=== PATIENT | female | born 1975 | race Caucasian/White ===

== ENCOUNTER 2018-02-05 13:54 | Inpatient (IN) | payer OTHER ==
[~2018-02-05] VITALS: Ht 165.1 cm; Wt 50.1 kg
[~2018-02-05 13:54] MED LIST: ALBUTEROL0.09 MG/A1 INH; AUGMENTIN 875 M1 TAB PO; CETIRIZINE HCL10 MG PO; CRAN-PLUS1 CAP PO; ESCITALOPRAM10 MG; FLONASE120 SPRAY/ NASB; MOTRIN800 MG PO; NICODERM C14 MG/24 H TOP; PERCOCET 325 MG1 TA2 PO; Robitussin Dm PO; SYMBICORT 160/41 PUF INH; TUMS500 MG PO; ZYRTEC ALLERGY10 MG
[2018-02-05 14:32] LABS: ABSOLUTE BASOPHIL COUNT 0.1 /CUMM (0.0-0.2); ABSOLUTE EOSINOPHIL COUNT 0 /CUMM (0.0-0.7); ABSOLUTE GRANULOCYTE CT 6.2 /CUMM (1.4-6.5); ABSOLUTE LYMPH COUNT 1.6 /CUMM (1.2-3.4); ABSOLUTE MONOCYTE COUNT 0.8 /CUMM (0.10-0.60); BASOPHIL % 0.7 % (0.0-2.0); EOSINOPHIL % 0.3 % (0-5); GRANULOCYTE % 70.9 % (42.2-75.2); HEMATOCRIT 32.6 % (37-47); MEAN CORPUSCULAR HGB CONC 32.8 G/DL (33.0-37.0); MEAN CORPUSCULAR VOLUME 112.7 FL (81.0-99.0); MEAN PLATELET VOLUME 8.2 FL (7.4-10.4); PLATELET COUNT 315 /CUMM (130-400); RBC DISTRIBUTION WIDTH 15.6 % (11.5-14.5); RED BLOOD CELL CT 2.89 /CUMM (4.20-5.40); WHITE BLOOD CELL COUNT 8.8 /CUMM (4.8-10.8)
--- NOTE | 2018-02-05 16:23 | ED GI/GU/ABDOMINAL COMPLAINT ---
History of Present Illness General Chief Complaint: Abdominal Pain/Flank Pain Stated Complaint: ABD PAIN Source: patient Exam Limitations: no limitations Triage Note: 42 YO FEMALE TO TRIAGE FOR EVAL OF ABD DISTENTION AND ABD PAIN ZACKERY PEREZ. STATES SHE HAS LOST ALOT OF WEIGHT OVER THE PAST MONTH, STATES WAS BINGE DRINKING FOR "AWHILE" BUT HAS STOPPED. STATES ABD PAIN HAS BEEN GOING ON FOR "AWHILE" "I THOUGHT IT WAS FROM MY ANTIDEPRESSENTS" Triage Nurses Notes Reviewed? yes ? N Is pt currently ? No HPI: Patient is a 42-year-old male presenting to the emergency department accompanied by mother complaining of severe abdominal pain and distention that has worsened past 3 weeks specifically the past 2 days. She states her belly has slowly been getting distended, she is having increased pain. Associated symptoms include chills, a 30 pound weight loss in the past 3 months, and nausea. Patient admits she went through a bad divorce a few months ago which got her depressed, drinking often, and loss of appetite. She denies any chest pain, vomiting, fever, hematochezia, or melena. She is followed by her PCP Dr. Cherry who recently placed her on Macrobid last week for suspected UTI. She states she only took the antibiotic for the first 2 days and has stopped. There is no dysuria but states she is not voiding completely possibly due to belly extension. (Peggy DENNY,Antwon) Reconcile Medications Albuterol Sulfate (Proventil Hfa) 90 MCG HFA.AER.AD 2 PUF INH 4 TIMES/DAY PRN SOB (Reported) Budesonide/Formoterol Fumarate (Symbicort 160-4.5 Mcg Inhaler) 160 MCG-4.5 MCG/ ACTUATION HFA.AER.AD 2 PUF INH BID ASHTMA (Reported) Multivitamin (One Daily) 1 EACH TABLET 1 TAB PO DAILY SUPPLEMENT (Reported) (Eric Talamantes DO) Vital Signs & Intake/Output Vital Signs & Intake/Output Vital Signs Date Time Temp Pulse Resp B/P B/P Pulse O2 O2 Flow FiO2 Mean Ox Delivery Rate 02/07 0600 98.1 79 16 102/56 98 Room Air 02/07 0156 98.6 95 16 116/70 98 Room Air 02/07 0000 Room Air 02/06 2010 98.3 93 16 120/70 100 02/06 1400 98.3 78 20 100/60 02/06 1354 98.3 78 20 97 Room Air ED Intake and Output 02/07 0000 02/06 1200 Intake Total 1680 300 Output Total 400 Balance 1280 300 Intake, IV 300 300 Intake, Oral 1380 Number 5 Bowel Movements Output, Urine 400 Patient 111 lb Weight Allergies Coded Allergies: acetaminophen (From VICODIN) (UPSET STOMACH 02/05/18) hydrocodone (From VICODIN) (UPSET STOMACH 02/05/18) oxycodone (From PERCOCET) (UPSET STOMACH 02/05/18) (Maria Del Rosario Pelayo) Past History Travel History Traveled to [place] past 21 day No Medical History Any Pertinent Medical History? see below for history Neurological: NONE EENT: NONE Cardiovascular: MITRAL VALVE PROLAPSE Respiratory: bronchitis, rUPTURED BLEBS WITH PNEUMOTHORAX IS BILATERAL Gastrointestinal: NONE Hepatic: NONE Renal: NONE Musculoskeletal: FRACTURED RTOE WITH PINS Psychiatric: NONE Endocrine: NONE Blood Disorders: NONE Cancer(s): NONE SERVICE CREW LEADER/Reproductive: S/P TUBAL LIGATION History of MRSA: No History of VRE: No History of CDIFF: No Tetanus Vaccine: 06/13/13 Surgical History Surgical History: surgery for collapsed lung Psychosocial History Who do you live with Family Services at Home None What is your primary language French Tobacco Use: Current Daily Use Daily Tobacco Use Amount/Type: => 5 Cigarettes daily Family History Family History, If Any: MOTHER FATHER Relation not specified for: FH: brain cancer FH: COPD (chronic obstructive pulmonary disease) Hx Contributory? No (Antwon Jean) Review of Systems Review of Systems Constitutional: Reports: chills, weakness. Denies: diaphoresis, fever, malaise. EENTM: Denies: blurred vision, double vision, visual changes. Respiratory: Denies: cough, hemoptysis, short of breath. Cardiovascular: Denies: chest pain, palpitations. GI: Reports: abdominal pain, diarrhea, distention. Denies: melena, bloody stool. Genitourinary: Reports: hesitation. Denies: dysuria, hematuria. (Antwon Jean) Physical Exam Physical Exam General Appearance: well developed/nourished, alert, awake, anxious, severe distress Head: atraumatic, normal appearance Eyes: Bilateral: normal appearance, EOMI. Ears, Nose, Throat, Mouth: hearing grossly normal Neck: normal inspection, supple, full range of motion Respiratory: normal breath sounds, no respiratory distress, quiet respiration Cardiovascular: regular rate/rhythm Gastrointestinal: distention, guarding, tenderness, hyperactive bowel sounds Back: CVA tenderness (R), CVA tenderness (L) Comments: Diffuse tenderness throughout all of abdomen however slightly more tender in the right upper quadrant. Positive Lion sign. Positive rebound tenderness throughout. Core Measures ACS in differential dx? No Sepsis Present: No Sepsis Focused Exam Completed? No (Antwon Jean) Progress Differential Diagnosis: AAA (peritonitis ), appendicitis, biliary colic, bowel obstruction, cholecystitis, diverticulitis, ectopic , endometritis, kidney stone, ovarian cyst, ovarian torsion, pancreatitis, PID/cervicitis, UTI/ pyelo, peritonitis, etoh hepatitis (Antwon Jean) Plan of Care: Orders Procedure Date/time Status CULTURE,BODY FLUID 02/07 0907 Active CYTOLOGY SPECIMEN 02/07 0907 Active BODY FLUID TOTAL PROTEIN 02/07 0907 Active BODY FLUID LDH 02/07 0907 Active BODY FLUID CELL COUNT 02/07 0907 Active BODY FLUID GLUCOSE 02/07 0907 Active BODY FLUID AMYLASE 02/07 0907 Active BODY FLUID ALBUMIN 02/07 0907 Active HEPATIC FUNCTION PANEL 02/07 0600 Active US-PARACENTESIS 02/07 UNK Active Regular Diet 02/06 L Active URINE 02/06 1017 Complete Current Medications Sig/Dawson Start time Last Medication Dose Stop Time Status Admin Furosemide 20 MG DAILY 02/07 0912 AC (Lasix) Spironolactone 50 MG DAILY 02/07 0912 AC (Aldactone) Folic Acid 1 MG DAILY 02/06 0900 AC 02/07 (Folic Acid) 0907 Multivitamins 1 TAB DAILY 02/06 0900 AC 02/07 (Theragran Vitamins) 0908 Thiamine HCl 100 MG DAILY 02/06 0900 AC 02/07 (Vitamin B1) 0908 Omeprazole 40 MG DAILY AC 02/06 0700 AC (Prilosec) Lorazepam 0 Q1P PRN 02/06 0045 AC (Ativan) Heparin Sodium 5,000 UNIT Q8 02/05 2200 AC (Porcine) Ondansetron HCl 4 MG Q6P PRN 02/05 2115 AC 02/06 (Zofran) 0421 Ketorolac 15 MG Q6P PRN 02/05 2100 AC 02/07 Tromethamine 02/10 (Toradol) Laboratory Tests 02/07/18 0605: Total Bilirubin Pending, Direct Bilirubin Pending, AST Pending, ALT Pending, Alkaline Phosphatase Pending, Total Protein Pending, Albumin Pending 02/06/18 1300: Urine Test NEGATIVE 02/06/18 1141: Lactic Acid Cancelled 02/06/18 1000: Lactic Acid 1.6 02/06/18 0946: Urine Color ADDY, Urine Clarity HAZY H, Urine pH 6.0, Ur Specific [place] >= 1.030, Urine Protein 30 H, Urine Ketones TRACE H, Urine Nitrite POS H, Urine Bilirubin POS@ICTO H, Urine Urobilinogen 4.0 H, Ur Leukocyte Esterase TRACE H , Ur Microscopic SEDIMENT EXAMINED, Urine RBC PACKD H, Urine WBC 1-3 H, Ur Epithelial Cells MOD H, Urine Bacteria MOD H, Urine Mucus MANY H, Urine Hemoglobin LARGE H, Urine Glucose NEG Microbiology 02/07 907 BODY FLUID: Body Fluid Culture - ORD 02/07 907 BODY FLUID: Gram Stain - ORD Patient is a 42-year-old female presenting to the emergency department accompanied by mother complaining of severe abdominal pain and distention that has worsened past 3 weeks, specifically the past 2 days. There is a recent history of suspected UTI. Patient has bilateral flank pain as well as diffuse abdominal tenderness and distention. CT Scan with contrast results: IMPRESSION: 1. Moderate volume of ascites. 2. Small right and trace left pleural effusions. 3. Prominent bullous changes at the lung bases. 4. Hepatomegaly and changes of diffuse hepatic steatosis. A paracentesis was performed with sterile technique and aseptic conditions. Fluid was sent off for culture. Noted as clear and yellow. Admission orders were put in for the patient at this time around 21:00. (Antwon Jean) I was involved in patient care for diagnostic and therapeutic paracentesis only. Details described in the procedure note. Maria Del Rosario Newman PA-C Initial ED EKG: none (Maria Del Rosario Pelayo) Departure Departure Condition: Stable Referrals: Martha QUINTEROS,Hector Patel (PCP/Family) Departure Forms: Customer Survey General Discharge Information (Antwon Jean) Departure Clinical Impression Primary Impression: Alcoholic hepatitis Secondary Impressions: Liver failure Admission Note Spoke With: Jorge Davis MD Documentation of Exam: Documentation of any treatments & extenuating circumstances including Concerns Regarding Discharge (functional status, medication knowledge or non-compliance, living conditions, etc.) that warrant an admission rather than observation: [The patient needs admission for paracentesis, GI consultation, IV fluids, IV analgesics, rule out spontaneous bacterial peritonitis] Saw and personally examined the patient and I agree with the PAs evaluation. Paracentesis done under my direct supervision. PA/COPING MACHINE OPERATOR Co-Sign Statement Statement: ED Attending supervision documentation- [x] I saw and evaluated the patient. I have also reviewed all the pertinent lab results and diagnostic results. I agree with the findings and the plan of care as documented in the PA's/COPING MACHINE OPERATOR's documentation. [] I have reviewed the ED Record and agree with the PA's/COPING MACHINE OPERATOR's documentation. [] Additions or exceptions (if any) to the PAs/COPING MACHINE OPERATOR's note and plan are summarized below: [] Resident Co-Sign Statement Statement: ED Attending supervision documentation- [z] I saw and evaluated the patient. I have also reviewed all the pertinent lab results and diagnostic results. I agree with the findings and the plan of care as documented in the Resident's documentation. [] I have reviewed the ED Record and agree with the Resident's documentation. [] Additions or exceptions (if any) to the Resident's note and plan are summarized below: [] I saw and personally examined the patient and I agree with the direct marketing intern's evaluation. She has left lower quadrant abdominal pain and tenderness. (Eric Talamantes DO) Departure Disposition: STILL A PATIENT (Maria Del Rosario Pelayo) Procedures Additional Procedures Additional Procedures: paracentesis Progress: Largest pocket fluid visualized in the right lower quadrant using ultrasound, anesthetized with 1% lidocaine, 20 cc syringe filled with clear yellow ascites fluid for diagnostic purposes, additional 250 cc of ascites fluid were removed for therapeutic relief. Pigtail catheter was removed and bandage applied. No complications during the procedure per (Maria Del Rosario Pelayo) ED Attending Observation Initial Observation Note: I have seen and personally examined NANCY MALIK on 02/05/18 at 2140. I agree with the current emergency department documentation. The disposition (admission or discharge) is uncertain at this time, she needs a period of observation for the following reason(s): The ED Nurse caring for this patient has been personally informed as to what the patient is being observed for. (Antwon Jean) anesthetized with 1% lidocaine, 20 cc syringe filled with clear yellow ascites fluid for diagnostic purposes, additional 250 cc of ascites fluid were removed for therapeutic relief. Pigtail catheter was removed and bandage applied. No complications during the procedure per (Maria Del Rosario Pelayo) ED Attending Observation Initial Observation Note: I have seen and personally examined NANCY MALIK on 02/05/18 at 2140. I agree with the current emergency department documentation. The disposition (admission or discharge) is uncertain at this time, she needs a period of observation for the following reason(s): The ED Nurse caring for this patient has been personally informed as to what the patient is being observed for. (Antwon Jean)
--- NOTE | 2018-02-05 17:37 | CT SCAN REPORT ---
EXAMINATION: CT ABDOMEN AND PELVIS WITH CONTRAST CLINICAL INFORMATION: Abdominal pain and distention. COMPARISON: CT abdomen and pelvis 01/13/2009. TECHNIQUE: Multidetector volumetric imaging was performed from the superior aspect of the liver through the pubic symphysis following administration of oral contrast. Sagittal and coronal reformatted images were obtained on the technologist's workstation. DLP: 283 mGy-cm FINDINGS: LUNG BASES: Prominent bullous changes at the bilateral lung bases. Small right pleural effusion. Trace left pleural fluid. PERITONEAL CAVITY: Moderate volume of ascites. No pneumoperitoneum. LIVER, GALLBLADDER, AND BILIARY TREE: Diffusely decreased hepatic radiodensity. There is a degree of hepatomegaly. No focal hepatic lesion is demonstrated. The gallbladder is distended without evidence of gallbladder wall thickening or gallstones. PANCREAS: Unremarkable. SPLEEN: Unremarkable. ADRENAL GLANDS: Unremarkable. KIDNEYS AND URETERS: No hydronephrosis. No renal or ureteral calculi demonstrated. BLADDER: Decompressed. GASTROINTESTINAL TRACT: Bowel gas pattern is nonobstructive. No evidence of acute bowel inflammation. The appendix is unremarkable. ABDOMINAL WALL: No significant hernia is appreciated. LYMPH NODES: No bulky adenopathy. VASCULAR: Unremarkable. PELVIC VISCERA: Ascites tracks into the pelvis. No suspicious uterine or adnexal lesion. OSSEOUS STRUCTURES: No acute osseous abnormalities. IMPRESSION: 1. Moderate volume of ascites. 2. Small right and trace left pleural effusions. 3. Prominent bullous changes at the lung bases. 4. Hepatomegaly and changes of diffuse hepatic steatosis.
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
[2018-02-05 21:37] LABS: PT 13.3 SEC (9.4-12.5)
[2018-02-05] MEDS ORDERED: PROVENTIL HFA6.7 GM INH (21:49)
[2018-02-05] MEDS ORDERED: SYMBICORT 16010.2 GM INH (21:49)
[2018-02-05] MEDS ORDERED: ONE DAILY1 EACH PO (21:50)
[2018-02-05 22:43] VITALS: BP 110/60
[2018-02-06 06:00] VITALS: BP 100/62
[2018-02-06 06:25] VITALS: BP 100/62
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
[2018-02-06 09:04] LABS: ABSOLUTE BASOPHIL COUNT 0.1 /CUMM (0.0-0.2); ABSOLUTE EOSINOPHIL COUNT 0.1 /CUMM (0.0-0.7); ABSOLUTE GRANULOCYTE CT 6.5 /CUMM (1.4-6.5); ABSOLUTE LYMPH COUNT 1.3 /CUMM (1.2-3.4); ABSOLUTE MONOCYTE COUNT 1.3 /CUMM (0.10-0.60); BASOPHIL % 0.6 % (0.0-2.0); GRANULOCYTE % 70.6 % (42.2-75.2); HEMATOCRIT 28.9 % (37-47); MEAN CORPUSCULAR HGB 36.8 PG (27.0-31.0); MEAN PLATELET VOLUME 8.9 FL (7.4-10.4); PLATELET COUNT 256 /CUMM (130-400); RBC DISTRIBUTION WIDTH 15.9 % (11.5-14.5); RED BLOOD CELL CT 2.51 /CUMM (4.20-5.40); WHITE BLOOD CELL COUNT 9.3 /CUMM (4.8-10.8)
--- NOTE | 2018-02-06 12:35 | ULTRASOUND REPORT ---
US ABDOMEN COMPLETE CLINICAL INFORMATION: Ascites. Cirrhosis.. COMPARISON: Abdominal CT 02/05/2018. TECHNIQUE: Real-time imaging of the abdominal viscera. FINDINGS: PANCREAS: Normal. ABDOMINAL AORTA: The proximal segment is normal in caliber. INFERIOR VENA CAVA: Visualized portions are normal. LIVER: Liver is enlarged and there is increased liver echogenicity suggesting hepatic steatosis. No definite focal liver lesions are identified. GALLBLADDER: Normal. The gallbladder is physiologically distended without evidence of stones, sludge, polyps, wall thickening or pericholecystic fluid. COMMON BILE DUCT: Normal in caliber measuring 0.5 cm in diameter. RIGHT KIDNEY: Normal. No hydronephrosis. No renal calculi or focal parenchymal lesions. The kidney measures 9.0 cm in maximum dimension. LEFT KIDNEY: Normal. No hydronephrosis. No renal calculi or focal parenchymal lesions. The kidney measures 9.4 cm in maximum dimension. SPLEEN: Normal. The spleen measures 7.5 cm in maximum dimension. FREE FLUID: There is moderate volume intra-abdominal ascites that is similar to the 02/05/2018 CT study. IMPRESSION: Moderate volume intra-abdominal ascites that is similar to yesterday's CT study. Hepatomegaly and hepatic steatosis as demonstrated on yesterday's CT study.
[2018-02-06 13:54] VITALS: BP 100/60
[2018-02-06 14:00] VITALS: BP 100/60
[2018-02-06 20:10] VITALS: BP 120/70
[2018-02-07 01:56] VITALS: BP 116/70
[2018-02-07 06:00] VITALS: BP 102/56
--- NOTE | 2018-02-07 06:24 | PN- Housestaff ---
Max Fletcher 02/07/18 0624: Subjective Follow-up For: Alcoholic hepatitis Hypokalemia Malnutrition Hypomagnesemia Elevated Alk Phos Subjective: Pt seen and examined this am. She was afebrile, though uncomfortable due to the pressure in her abdomen. She also complains of leaking at the parecentesis site, which made sleeping difficult. She however has no leukocytosis nor SOB. BP has been on the low side 90/60. Review of Systems Constitutional: Reports: see HPI. EENTM: Reports: no symptoms. Cardiovascular: Reports: no symptoms. Respiratory: Reports: no symptoms. Gastrointestinal: Reports: see HPI. Genitourinary: Reports: no symptoms. Musculoskeletal: Reports: no symptoms. Objective Last 24 Hrs of Vital Signs/I&O Vital Signs Date Time Temp Pulse Resp B/P B/P Pulse O2 O2 Flow FiO2 Mean Ox Delivery Rate 02/07 1601 98.0 78 20 100/70 100 02/07 1046 88/60 02/07 0600 98.1 79 16 102/56 98 Room Air 02/07 0156 98.6 95 16 116/70 98 Room Air 02/07 0000 Room Air 02/06 2010 98.3 93 16 120/70 100 Intake & Output 02/07 1600 02/07 0800 02/07 0000 Intake Total 200 400 550 Output Total Balance 200 400 550 Intake, IV 50 Intake, Oral 200 400 500 Physical Exam General Appearance: Alert, Oriented X3, Moderate Distress HEENT: Atraumatic, EOMI Neck: Supple Cardiovascular: Regular Rate, Normal S1, Normal S2 Lungs: Clear to Auscultation, Normal Air Movement Abdomen: Normal Bowel Sounds, Abdominal distension noted. No rashes or scars. No tenderness on light or deep palpation except around the parecentesis site. Current Medications: Current Medications Sig/Dawson Start time Last Medication Dose Route Stop Time Status Admin Folic Acid 1 MG DAILY 02/06 09 AC 02/07 PO 0907 Furosemide 20 MG DAILY 02/07 09 AC PO Heparin Sodium 5,000 UNIT Q8 02/05 2200 AC (Porcine) SC Ketorolac 15 MG Q6P PRN 02/05 2100 AC 02/07 Tromethamine IV 02/10 2059 1236 Lorazepam 0 Q1P PRN 02/06 0045 AC IV Multivitamins 1 TAB DAILY 02/06 0900 AC 02/07 PO 0908 Omeprazole 40 MG DAILY AC 02/06 0700 AC PO Ondansetron HCl 4 MG Q6P PRN 02/055 02/06 IV 0421 Spironolactone 50 MG DAILY 02/07 0912 AC PO Thiamine HCl 100 MG DAILY 02/06 0900 AC 02/07 PO 0908 Last 24 Hrs of Lab/Jose Results Last 24 Hrs of Labs/Mics: Laboratory Tests 02/07/18 1400: Fluid WBC 42 H, Fld Total RBCs Counted 260 H 02/07/18 1400: Lymphocytes 6, % Normal PMNs 16, Misc Hematology Test 77, Fluid Glucose 109, Fluid Total Protein < 2.0, Fluid Albumin < 1.0, Fluid LDH 134, Fluid Amylase < 30 02/07/18 0605: Total Bilirubin 1.9 H, Direct Bilirubin 1.5 H, AST 116 H, ALT 73 H, Alkaline Phosphatase 319 H, Total Protein 4.8 L, Albumin 2.2 L Microbiology 02/07 1400 BODY FLUID: Body Fluid Culture - RES 02/07 1400 BODY FLUID: Gram Stain - RES Assessment/Plan Assessment: 42 y/o F with PMH significant for mitral valve prolapse, b/l pneumothoraces s/p ruptured blebs, emphysema, anxiety, and depression presenting with 3 week history of progressive abdominal distention and pain. Pt has a history of recent heavy alcohol use (>1pint vodka/day), though stopped on her own and her abdomen started to swell. 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 She was started on zoloft by her PCP for depression which made her nauseaous which prompted her to stop taking it. . The nausea continued and then she noticed the abdominal distension. She presented to the ED c/o unbearable abdominal pain that impeded her to sleep. She was admitted for further management of the following issues: ASSESSMENT #Alcoholic hepatitis 2/2 heavy alcohol consumption #Electrolyte derangements (hypoK, hypoMg) #Malnutrition #Lactic acidosis, resolved # Alcoholic hepatitis 2/2 heavy alcohol consumption Pt complaining of abdominal distension, 260 CC removed in the ED. IR with large volume paracentesis today. First paracentesis fluid showed WBC of 48, not concerning for SBP. She has remained afebrile with no leukocytosis. GI is following, recommended spironolactone and lasix. Second fluid will be sent for analysis. Upper quadrant ultrasound study showed moderate volume intra-abdominal ascites that is similar to prior CT study. Hepatomegaly and hepatic steatosis as demonstrated on prior CT study. High alkphos is noted. -Spironolactone 50 mg -Lasix 20mg #Electrolyte derangements (Hypokalemia, hypomg), due to alcohol use -Continue to monitor -Replete as needed #Malnutrition Low albumin (2.2), likely secondary to her alcohol use. -will have regular diet inpatient #Lactic acidosis, resolved. -Off fluids, latest lactic was 1.6. DVT prophylaxis: heparin/ALPS/ambulation Code status: full code Problem List: 1. Alcoholic hepatitis Pain Ratin Pain Location: N/a Pain Goal: Remain pain free Pain Plan: as per pathway Tomorrow's Labs & Rationales: as indicated Sonu Bolanos MD 02/07/182035: Attending MD Review Statement Attending Statement Attending MD Statement: examined this patient, discuss w/resident/PA/FLEET MAINTENANCE FOREMAN, agreed w/resident/PA/FLEET MAINTENANCE FOREMAN, discussed with family, reviewed EMR data (avail), discussed with nursing, discussed with case mgmt, reviewed images, amended to note Attending Assessment/Plan: The patient was seen and discussed with house staff. Appreciate GI input. Underwent therapeutic paracentesis and removed 2 Liters of fluid. The patient requested discharge to home. Will start with Spironolactone 50 mg daily and add furosemide if BP allows. Follow-up with Dr. Thomas and Dr. Park. Patient did not desire alcohol program.
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
[2018-02-07 10:46] VITALS: BP 88/60
[2018-02-07] MEDS ORDERED: FOLIC ACID1 M1 PO (15:35)
[2018-02-07] MEDS ORDERED: VITAMIN B-1100 MG PO (15:35)
--- NOTE | 2018-02-07 15:40 | Patient Discharge Instructions ---
Discharge Instructions General Discharge Information You were seen/treated for: Ascites You had these procedures: Paracentesis - removal of fluid in your abdomen Watch for these problems: Infection at the site of the paracentesis, fever, nausea, vomitting, trouble breathing Special Instructions: Follow up with your primary care physician within 1 week of discharge Follow up with the manager front (Dr. Park) within 1-2 weeks of discarhge. Please take the medication as prescribed. Please weigh yourself daily. Please note your blood pressure is on the lower side. Please see Dr. Thomas and have your blood pressure checked and repeat bloodwork prior to starting the furosemide (lasix) which is the water pill. The medication has been sent to your pharmacy. Diet Continue normal diet: No Recommended Diet: Heart Healthy Additional DIET Information: Low salt diet - please do not add additional salt to your diet. Avoid canned foods which have high salt content. Activity Full Activity/No Limits: No Acute Coronary Syndrome Inclusion Criteria At DC or during hospital stay patient has or had the following: ACS DIAGNOSIS No Discharge Core Measures Meds if any: Prescribed or Continued at Discharge Meds if any: NOT Prescribed or Continued at Discharge Congestive Heart Failure Inclusion Criteria At DC or during hospital stay patient has or had the following: CHF DIAGNOSIS No Discharge Core Measures Meds if any: Prescribed or Continued at Discharge Meds if any: NOT Prescribed or Continued at Discharge Cerebrovascular accident Inclusion Criteria At DC or during hospital stay patient has or had the following: CVA/TIA Diagnosis No Discharge Core Measures Meds if any: Prescribed or Continued at Discharge Meds if any: NOT Prescribed or Continued at Discharge Venous thromboembolism Inclusion Criteria VTE Diagnosis No VTE Type NONE VTE Confirmed by (Test) NONE Discharge Core Measures - Per Current guidelines, there needs to be overlap - treatment for the first 5 days of Warfarin therapy. - If discharged on Warfarin prior to 5 days of - overlap therapy, the patient will need to be - assessed for post discharge needs including - *Post discharge parental anticoagulation - *Warfarin and/or parental anticoagulation education - *Follow up date to check INR post discharge At least 5 days overlap therapy as Inpatient No Meds if any: Prescribed or Continued at Discharge Note: Overlap Therapy is Warfarin and Anticoagulant Meds if any: NOT Prescribed or Continued at Discharge
[2018-02-07 16:01] VITALS: BP 100/70
--- NOTE | 2018-02-07 16:14 | ULTRASOUND REPORT ---
EXAMINATION: PARACENTESIS CLINICAL INFORMATION: Ascites COMPARISON: Abdominal ultrasound 02/06/[address] abdomen pelvis 02/05/2018 TECHNIQUE: Indirect ultrasound guidance using a 6 [place] [id number] closed needle/catheter system FINDINGS: Informed consent was obtained from the patient prior to the procedure. During this process, the procedure alternatives were explained, along with the intended outcome and benefits. The risks of the procedure, as well as the risk of not doing the procedure, was discussed. The patient was given the opportunity to ask questions regarding the procedure and appeared competent to make medical decisions. A signed consent form which documents this discussion was placed in the medical record. Ultrasound evaluation of the abdomen for ascites was performed. Moderate amount of ascites is noted in the right lower quadrant. The site was marked. A timeout procedure was performed. The area was prepped and draped in usual sterile fashion. Using standard interventional and sterile techniques, lidocaine was used to anesthetize the region. A 6 [place] [id number]-[id number] closed needle/catheter system was introduced into the right lower quadrant using standard safety needle technique. Approximately 2.2 L of cloudy yellow fluid was removed into the Vacutainer bottles. The catheter was then removed. Good hemostasis was achieved. Dermabond was placed. Fluid sent to the laboratory for requested analysis. The patient demonstrated immediate symptomatic relief. The patient tolerated the procedure well. The patient was discharged from the department in stable condition. COMPLICATIONS: None. IMPRESSION: Successful ultrasound-guided paracentesis yielding 2.2 L of fluid.
[2018-02-07] MEDS ORDERED: ALDACTONE25 MG PO ×2 (16:33→17:06)
[2018-02-07] MEDS ORDERED: FUROSEMIDE20 M1 PO ×2 (16:33→17:06)
== END 2018-02-07 17:00 | DRG 433 ==
LOC: ERH 13:54 → ERHI 21:02 → 2NA 21:02 → ENTRNSPT 22:23 → EDTRNSPTSTS 22:28 → EDTRNSPT 22:28 → 2NA 22:38 → ENRESERV 22:38 → CMPTRNSPT 22:56 → 2NA 02-06 10:06
PROVIDERS: Hospitalist; Physician Assistant Medical
PROC: 0W9G3ZX Drainage of Peritoneal Cavity, Percutaneous Approach, Diagnostic (ICD-10-PCS; principal; 2018-02-07)
DX: K70.11 Alcoholic hepatitis with ascites (principal); E46 Unspecified protein-calorie malnutrition; Z68.1 Body mass index [BMI] 19.9 or less, adult; E87.2 Acidosis; E87.6 Hypokalemia; F41.9 Anxiety disorder, unspecified; F32.9 Major depressive disorder, single episode, unspecified; J43.9 Emphysema, unspecified; I34.1 Nonrheumatic mitral (valve) prolapse; F17.210 Nicotine dependence, cigarettes, uncomplicated; Z79.51 Long term (current) use of inhaled steroids; Z88.6 Allergy status to analgesic agent; Z88.5 Allergy status to narcotic agent; Z98.51 Tubal ligation status; E83.42 Hypomagnesemia; D53.9 Nutritional anemia, unspecified; E88.09 Other disorders of plasma-protein metabolism, not elsewhere classified; Y90.2 Blood alcohol level of 40-59 mg/100 ml; F10.10 Alcohol abuse, uncomplicated
CPT/HCPCS: 2NASP; 87075; 36415; 36592; 74176; 81001; 81025; 82436; G0480; J0696; J1644; J1885; J2001; J2405; J3250; J3490

== ENCOUNTER 2018-02-08 18:48 | Emergency (ER) | payer OTHER ==
[~2018-02-08 18:48] MED LIST changes: +ALDACTONE25 MG PO; +FOLIC ACID1 M1 PO; +FUROSEMIDE20 M1 PO; +ONE DAILY1 EACH PO; +PROVENTIL HFA6.7 GM INH; +SYMBICORT 16010.2 GM INH; +VITAMIN B-1100 MG PO
[2018-02-08 18:51] VITALS: BP 107/81
== END 2018-02-08 19:13 | disposition admitted as inpatient to this hospital (09) ==
LOC: ERH 18:48
DX: Z48.00 Encounter for change or removal of nonsurgical wound dressing (principal)

== ENCOUNTER 2018-02-25 16:06 | Observation (INO) | payer OTHER ==
[~2018-02-25] VITALS: Ht 165.1 cm; Wt 48.5 kg
[2018-02-25 17:13] LABS: ABSOLUTE BASOPHIL COUNT 0 /CUMM (0.0-0.2); ABSOLUTE EOSINOPHIL COUNT 0.1 /CUMM (0.0-0.7); ABSOLUTE GRANULOCYTE CT 9.2 /CUMM (1.4-6.5); ABSOLUTE LYMPH COUNT 1.7 /CUMM (1.2-3.4); ABSOLUTE MONOCYTE COUNT 1.1 /CUMM (0.10-0.60); BASOPHIL % 0.1 % (0.0-2.0); EOSINOPHIL % 0.9 % (0-5); GRANULOCYTE % 75.5 % (42.2-75.2); HEMATOCRIT 35.8 % (37-47); MEAN PLATELET VOLUME 8.4 FL (7.4-10.4); PLATELET COUNT 455 /CUMM (130-400); RBC DISTRIBUTION WIDTH 15.3 % (11.5-14.5); RED BLOOD CELL CT 3.48 /CUMM (4.20-5.40); WHITE BLOOD CELL COUNT 12.2 /CUMM (4.8-10.8)
--- NOTE | 2018-02-25 18:09 | ED GI/GU/ABDOMINAL COMPLAINT ---
History of Present Illness General Chief Complaint: Abdominal Pain/Flank Pain Stated Complaint: "MY ADBOMIN NEEDS TO BE DRAINED" Source: patient Exam Limitations: no limitations Vital Signs & Intake/Output Vital Signs & Intake/Output ED Intake and Output 02/27 0000 02/26 1200 Intake Total 1197.5 1080 Output Total 950 1724 Balance 247.5 -644 Intake, IV 597.5 600 Intake, Oral 600 480 Number 0 Bowel Movements Output, Other 950 1724 Patient 48.534 kg Weight Allergies Coded Allergies: acetaminophen (From VICODIN) (UPSET STOMACH 02/05/18) hydrocodone (From VICODIN) (UPSET STOMACH 02/05/18) oxycodone (From PERCOCET) (UPSET STOMACH 02/05/18) Reconcile Medications Albuterol Sulfate (Proventil Hfa) 90 MCG HFA.AER.AD 2 PUF INH 4 TIMES/DAY PRN SOB (Reported) Budesonide/Formoterol Fumarate (Symbicort 160-4.5 Mcg Inhaler) 160 MCG-4.5 MCG/ ACTUATION HFA.AER.AD 2 PUF INH BID ASHTMA (Reported) Folic Acid 1 MG TABLET 1 MG PO DAILY ALCOHOL USE Multivitamin (One Daily) 1 EACH TABLET 1 TAB PO DAILY SUPPLEMENT (Reported) Ondansetron HCl (Zofran) 4 MG TABLET 1 TAB PO Q6-8P nausea Oxycodone HCl 10 MG TABLET 1 TAB PO 4XDP severe pain Spironolactone (Aldactone) 25 MG TABLET 1 TAB PO DAILY Ascities instead of 50mg 2 pills take 25mg 1 pill Thiamine HCl (Vitamin B-1) 100 MG TABLET 100 MG PO DAILY ALCOHOL USE Triage Note: pt presents to ed "to have my abdomen drained" pt denies hx of ascites but reports hx of cirrhosis. abd distended and hard. pt also c/o of bilateral foot/ankle swelling. "had my abdomen drained 2.5 weeks ago" Triage Nurses Notes Reviewed? yes ? N Is pt currently ? No HPI: 42 yo female with a history of Cirrhosis, MVP, and COPD presents today for recurrent cirrhosis with ascites of abdomen. She states it was recently drained 3 weeks ago after getting to a point where she was unable to move. It is the same this time with her abdomen grossly distended. She was treated with a drainage and give furosemide which she started late due to a low blood pressure, vitamin B-1, Spiranolactone, and folic acid. She was dignosed with this due to a infection combined with her past alcohol use. She states she is nauseous with geralized abdomen pain that is severe. Denies any vomitng, diarrhea, chest pain, dizziness, headache, cough, fever, or chills. She admits to tobacco usage 1/3 of PPD for the last 29 years. Past History Travel History Traveled to [place] past 21 day No Medical History Any Pertinent Medical History? 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 No Review of Systems Review of Systems Constitutional: Reports: no symptoms, see HPI. EENTM: Reports: no symptoms, see HPI. Respiratory: Reports: see HPI. Cardiovascular: Reports: see HPI. GI: Reports: see HPI, distention, nausea. Denies: diarrhea, vomiting. Genitourinary: Reports: see HPI. Musculoskeletal: Reports: see HPI. Skin: Reports: see HPI. Neurological/Psychological: Reports: see HPI. Hematologic/Endocrine: Reports: see HPI. Physical Exam Physical Exam General Appearance: no apparent distress, alert, awake, anxious Head: atraumatic, normal appearance Eyes: Bilateral: normal appearance, PERRL, EOMI, normal inspection. Ears, Nose, Throat, Mouth: hearing grossly normal Neck: normal inspection, supple, full range of motion, normal alignment Respiratory: normal breath sounds, chest non-tender, no respiratory distress Cardiovascular: regular rate/rhythm Gastrointestinal: normal bowel sounds, distention, tenderness Pelvic: normal external exam Back: normal inspection Extremities: normal range of motion Neurologic/Psych: no motor/sensory deficits, awake, alert, oriented x 3 Core Measures ACS in differential dx? No Sepsis Present: No Sepsis Focused Exam Completed? No Progress Differential Diagnosis: AAA, AMI, appendicitis, biliary colic, bowel obstruction , colon cancer, cholecystitis, diverticulitis, ectopic , endometritis, esophageal varices, gastritis, hepatitis, hernia, hemorrhoids, ischemic bowel, inflamm bowel dis, intrauterine , kidney stone, Carina-Fern tear, ovarian cyst, ovarian torsion, pancreatitis, PID/cervicitis, peptic ulcer, PUD/ GERD, perforated viscous, SBO, threatened AB, UTI/pyelo Plan of Care: Orders Procedure Date/time Status LACTIC ACID 02/26 1956 Active EKG 02/25 1915 Active URINALYSIS 02/26 1656 Active LIPASE 02/26 1656 Complete LACTIC ACID 02/26 1656 Complete HEPATIC FUNCTION PANEL 02/26 1656 Complete CBC WITHOUT DIFFERENTIAL 02/26 1656 Complete BASIC METABOLIC PANEL 02/26 1656 Complete Current Medications Sig/Dawson Start time Last Medication Dose Stop Time Status Admin Potassium Chloride 40 MEQ Q13H 02/25 1915 UNVr (KCl 40MEQ in NS 1000ML) Sodium Chloride 1,000 ML (Normal Saline 0.9%) Laboratory Tests 02/25/18 1853: Urine Color Pending, Urine Clarity Pending, Urine pH Pending, Ur Specific [place] Pending, Urine Protein Pending, Urine Ketones Pending, Urine Nitrite Pending, Urine Bilirubin Pending, Urine Urobilinogen Pending, Ur Leukocyte Esterase Pending, Ur Microscopic SEDIMENT EXAMINED, Urine RBC Pending, Urine Hemoglobin Pending, Urine Glucose Pending 02/25/18 1704: Anion Gap 6, Estimated GFR > 60, BUN/Creatinine Ratio 22.5, Glucose 113 H, Lactic Acid 1.6, Calcium 8.8, Total Bilirubin 0.8, Direct Bilirubin 0.6 H, AST 70 H, ALT 45, Alkaline Phosphatase 184 H, Total Protein 5.8 L, Albumin 2.6 L , Lipase 256, CBC w Diff NO MAN DIFF REQ, RBC 3.48 L, MCV 103.0 H, MCH 33.0 H , MCHC 32.0 L, RDW 15.3 H, MPV 8.4, Gran % 75.5 H, Lymphocytes % 14.2 L, Monocytes % 9.3, Eosinophils % 0.9, Basophils % 0.1, Absolute Granulocytes 9.2 H, Absolute Lymphocytes 1.7, Absolute Monocytes 1.1 H, Absolute Eosinophils 0.1 , Absolute Basophils 0 Initial ED EKG: NSR, no ST T wave changes Departure Departure Disposition: HOME OR SELF CARE Condition: Stable Clinical Impression Primary Impression: Ascites due to alcoholic cirrhosis Secondary Impressions: Hypokalemia Referrals: Martha QUINTEROS,Hector Patel (PCP/Family) Departure Forms: Customer Survey General Discharge Information Prescriptions: Current Visit Scripts Spironolactone (Aldactone) 1 TAB PO DAILY #30 TAB instead of 50mg 2 pills take 25mg 1 pill Oxycodone HCl 1 TAB PO 4XDP #20 TAB Ondansetron HCl (Zofran) 1 TAB PO Q6-8P #30 TAB Observation Note Spoke With: Ryan QUINTEROS,Jorge Physician Advisor Notified: ARAVIND HESTER DO Place Patient In: Non-ED OBS Care Area Rationale for Observation: My rational for observation is as follows alcoholic cirrhosis with tender ascites, will require paracentesis to rule out SBP followed by LVP, potassium 2.6 will require repletion, can be done overnight and followed up in the morning , if normal can be discharged with outpatient follow up.
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
[2018-02-25 22:03] LABS: PT 12.4 SEC (9.4-12.5)
[2018-02-26 00:53] VITALS: BP 102/64
[2018-02-26 06:20] VITALS: BP 98/60
--- NOTE | 2018-02-26 08:51 | PN- Housestaff ---
Eduardo Parrish 02/26/18 0849: Subjective Follow-up For: Ascites Decompensated alcoholic cirrhosis Hypokalemia Subjective: Patient was seen and examined today. She was initially cooperative but got irritable and emotionally fragile towards the end of examination. She said she hadnt been sleeping due to the extreme discomfort and has been draining the bag every half hour. She denied any fever, adbominal pain .. Decreased urine output. She was exhausted and wanted to be left alone. Review of Systems Constitutional: Reports: weakness. Denies: chills, fever, malaise, unexplained weight loss. Cardiovascular: Reports: no symptoms. Respiratory: Reports: no symptoms. Gastrointestinal: Reports: abdominal pain, distention. Denies: bloating, constipation, diarrhea, bowel incontinence, melena, nausea, bloody stool, changes in stool, vomiting. Genitourinary: Reports: see HPI. Musculoskeletal: Reports: no symptoms. Objective Last 24 Hrs of Vital Signs/I&O Vital Signs Date Time Temp Pulse Resp B/P B/P Pulse O2 O2 Flow FiO2 Mean Ox Delivery Rate 02/26 0620 98.2 73 18 98/60 96 Room Air 02/26 0053 98.4 81 18 102/64 97 Room Air 02/26 0039 98.1 97 18 118/59 97 Room Air 02/25 2217 92 16 113/65 96 Room Air 02/25 2007 98.3 98 16 114/55 97 Room Air 02/25 1821 97.9 108 18 104/68 99 Room Air 02/25 1812 94 Room Air 02/25 1641 98.0 112 18 102/69 99 Room Air Intake & Output 02/26 1600 02/26 0800 02/26 0000 Intake Total 1080 Output Total 1724 200 Balance -644 -200 Intake, IV 600 Intake, Oral 480 Output, Other 1724 Output, Urine 200 Patient 107 lb 107 lb Weight Weight Reported by Patient Measurement Method Physical Exam General Appearance: Alert, Oriented X3, Cooperative, No Acute Distress, The patient appears very malnourished and is nearly cachectic Cardiovascular: Regular Rate, No Murmurs Lungs: Clear to Auscultation, Normal Air Movement Abdomen: distended, paracenetsis site is closed with a urostomy bag that is draining ample of fluid, that needs to be changed everyt half hr;ly Neurological: patient is irritable and frustrtated Extremities: No Clubbing, No Cyanosis, No Edema, Normal Pulses, No Tenderness/ Swelling Assessment/Plan Assessment: 42 year old female former alcoholic with history of decompensated liver cirrhosis and abdominal ascites presenting for recurrent ascites. In the ED, the patient's potassium was noted to be 2.6. PT/INR were noted to be within normal limits, while AST was at 70, down from >100 during her prior hospitalization. Patient has a remote chest CT on 01/31/2015 of extensive bullous emphysematous changes with associated compressive atelectasis in the lungs. Problems: 1. Abdominal ascites 2. Decompensated hepatic cirrhosis- ? Alpha 1 antitrypsin deficiency vs alcoholic 3. Hypokalemia Plan: -Place patient in general medicine observation -Ultrasound guided bedside paracentesis- 750 ml +1425ml of of yellowish fluid -Potassium Chloride 40meq IV, follow-up BEP -Resume Lasix -IV fluids, monitor BP -GI consult appreciated -ParaCentesis site is draining fluid, urostomy bag placed, measured the volume of fluid drained. -Thymine given, potassium chloride, multivitamins, magnesium sulfate, influenza vaccine, Full code Heart healthy diet Heparin DVT ppx Problem List: 1. Ascites 2. Liver failure Pain Ratin Pain Location: none Pain Goal: Remain pain free Pain Plan: none Tomorrow's Labs & Rationales: cbc, mg, BEP Tre Carson MD 02/26/18 1255: Attending MD Review Statement Attending Statement Attending MD Statement: examined this patient, discuss w/resident/PA/PEDIATRIC MEDICAL ASSISTANT, agreed w/resident/PA/PEDIATRIC MEDICAL ASSISTANT, discussed with family, reviewed EMR data (avail), discussed with nursing, discussed with case mgmt, reviewed images, amended to note Attending Assessment/Plan: Tre Cheung M.D. have examined this patient, reviewed available EMR data, personally reviewed images, discussed with resident/PA/PEDIATRIC MEDICAL ASSISTANT, discussed management plan with housestaff and nursing staff, discussed managment plan all of healthcare providers, discussed management plan with patient and/or family, agreed with resident/PA/PEDIATRIC MEDICAL ASSISTANT. The past history and parts of the chart have been autopopulated. 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 She declines to continue the hospitalization at this time. This is appropriate her blood pressure has been on the low side but stable. Her electrolytes have been repleted so far. She continues to drain from the paracentesis site and currently has an ostomy bag over it for collection. She has no signs of any infections at this time. Her pain is adequately controlled with some morphine. A prolonged discussion was held to discuss further need of hospitalization. It was offered to the patient to obtain a gastroenterology consultation continue to replete her electrolytes and monitor her output from her paracentesis insertion site. She understands the risks of leaving and has declined to stay. It is reasonable for her to be discharged she understands the risks of discharge including infection low blood pressure arrhythmias and possibly . She was instructed to contact her patient assistant tomorrow to set up an early appointment. She will be given ostomy bags for continued drainage of her ascitic fluid. We advised her to continue her spironolactone however hold her Lasix given continued fluid seepage and borderline blood pressure. We discussed the need for return to the emergency room if she was dizzy, any fevers, not feeling herself, overall malaise, or any other problems. It is also reasonable to check her alpha-1 antitrypsin on an outpatient basis. There is no current record at [facility] but reportedly there was no deficiency previously. She will be prescribed a 5 day course of oxycodone and Zofran on an outpatient basis which was sent over and FINANCIAL RESERVE CLERK review was attempted - however the patient was not found with the current demographics.
--- NOTE | 2018-02-26 08:55 | Proc Note Internal Medicine ---
Medicine Procedure Procedure Date: 02/25/18 Medical Procedure(s): paracentesis Pre-Operative Diagnosis: Recurrent Ascites Post-Operative Diagnosis: Recurrent Ascites Estimated Blood Loss: scant Anesthesia: Local anesthetic: 1% Lidocaine Procedure Findings: Ultrasound guidance was used to locate and katharine an ascitic pocket at the lower left quadrant. A time-out was completed, verifying correct patient, procedure, site, positioning. Patient was positioned, prepped, and draped in the usual sterile fashion. 1% Lidocaine was used to anesthetize the area. A sharp incision was made with minimal bleeding. A standard paracentesis kit needle was introduced into the peritoneal space and 750 ml clear yellow ascitic fluid. DENISHA Butler was present and supervised the procedure.
[2018-02-26 09:29] LABS: ABSOLUTE BASOPHIL COUNT 0.1 /CUMM (0.0-0.2); ABSOLUTE EOSINOPHIL COUNT 0.4 /CUMM (0.0-0.7); ABSOLUTE GRANULOCYTE CT 6.8 /CUMM (1.4-6.5); BASOPHIL % 0.7 % (0.0-2.0); EOSINOPHIL % 3.6 % (0-5); GRANULOCYTE % 66.2 % (42.2-75.2); MEAN CORPUSCULAR HGB 33.1 PG (27.0-31.0); MEAN CORPUSCULAR HGB CONC 31.8 G/DL (33.0-37.0); MEAN CORPUSCULAR VOLUME 104.3 FL (81.0-99.0); MEAN PLATELET VOLUME 9.2 FL (7.4-10.4); PLATELET COUNT 364 /CUMM (130-400); RBC DISTRIBUTION WIDTH 15.6 % (11.5-14.5); RED BLOOD CELL CT 2.95 /CUMM (4.20-5.40); WHITE BLOOD CELL COUNT 10.3 /CUMM (4.8-10.8)
[2018-02-26 09:56] LABS: HEMATOCRIT 30.7 % (37-47)
[2018-02-26 10:00] VITALS: BP 98/68
[2018-02-26] MEDS ORDERED: ALDACTONE25 MG PO (11:25)
--- NOTE | 2018-02-26 11:30 | Patient Discharge Instructions ---
Discharge Instructions General Discharge Information You were seen/treated for: Ascities Special Instructions: -Please follow-up with your primary care doctor within 1 week of discharge -Please follow-up with your GI doctor as soon as possible -If you starts spiking fevers, if you feel dizzy or there is increased leakage from the site of paracentesis please return to ED. -All your medications have been sent via [facility] -Since her blood pressure is low we are going to stop her Lasix until you see your primary care provider -We are also going to reduce her dose of spironolactone from 50 mg to 25 mg because your Bp is running very low Activity Activity Self Limited: Yes Acute Coronary Syndrome Inclusion Criteria At DC or during hospital stay patient has or had the following: ACS DIAGNOSIS No Discharge Core Measures Meds if any: Prescribed or Continued at Discharge Meds if any: NOT Prescribed or Continued at Discharge Congestive Heart Failure Inclusion Criteria At DC or during hospital stay patient has or had the following: CHF DIAGNOSIS No Discharge Core Measures Meds if any: Prescribed or Continued at Discharge Meds if any: NOT Prescribed or Continued at Discharge Cerebrovascular accident Inclusion Criteria At DC or during hospital stay patient has or had the following: CVA/TIA Diagnosis No Discharge Core Measures Meds if any: Prescribed or Continued at Discharge Meds if any: NOT Prescribed or Continued at Discharge Venous thromboembolism Inclusion Criteria VTE Diagnosis No VTE Type NONE VTE Confirmed by (Test) NONE Discharge Core Measures - Per Current guidelines, there needs to be overlap - treatment for the first 5 days of Warfarin therapy. - If discharged on Warfarin prior to 5 days of - overlap therapy, the patient will need to be - assessed for post discharge needs including - *Post discharge parental anticoagulation - *Warfarin and/or parental anticoagulation education - *Follow up date to check INR post discharge At least 5 days overlap therapy as Inpatient No Meds if any: Prescribed or Continued at Discharge Note: Overlap Therapy is Warfarin and Anticoagulant Meds if any: NOT Prescribed or Continued at Discharge
[2018-02-26] MEDS ORDERED: OXYCODONE HCL10 M2 PO (11:34)
[2018-02-26] MEDS ORDERED: ZOFRAN4 M2 PO (11:34)
--- NOTE | 2018-02-26 11:40 | Event Note ---
Event Note Event Note: patient was extensively counselled , risk and benefits were expalined , But patient wanted to go and she was given all the medications and wasasked to follow up with PCP, GI doctor at the earliest possible date and was discharged with a urostomy bad ( f/u DR Chacon note)
== END 2018-02-26 13:41 ==
LOC: ERH 16:06 → 2NA 19:42 → ERHI 19:42 → CANBEDREQ 19:47 → ENRESERV 20:53 → 2NA 02-26 00:44
PROVIDERS: Physician Assistant; Student in an Organized Health Care Education/Training Program
DX: K70.31 Alcoholic cirrhosis of liver with ascites (principal); E87.6 Hypokalemia; F17.200 Nicotine dependence, unspecified, uncomplicated; I34.1 Nonrheumatic mitral (valve) prolapse; K70.11 Alcoholic hepatitis with ascites; J43.9 Emphysema, unspecified; F41.9 Anxiety disorder, unspecified; F32.9 Major depressive disorder, single episode, unspecified
CPT/HCPCS: 6030; 81001; 82436; 93005; 93010; 96365; 96372; 96374; 96375; G0008; G0378; J1644; J2001; J2405; Q2036